=== PATIENT | female | born 1990 | race Caucasian/White ===

== ENCOUNTER → 2018-07-12 13:00 | Outpatient (CLI) | payer OTHER, MEDICAID, SELFPAY ==
--- NOTE | 2018-07-12 13:02 | DI.US.S_ITS ---
PROCEDURE: US OB <= 14 WEEKS FETUS INDICATIONS: viabliity and dates OUTSIDE/PRIOR DATING DATA: Last menstrual period (LMP): Not available. LMP-based estimated date of delivery (HENRI): Not available. First dating scan (date and location): 07/12/18. Estimated date of delivery (HENRI) from first dating scan: 02/09/19. TECHNIQUE: Real-time scanning was performed of the fetus and maternal pelvic organs, with image documentation. Endovaginal scanning was also performed to better visualize the fetus and maternal ovaries. COMPARISON: None. FINDINGS: Embryo: Single living intrauterine gestation with heart rate 185 beats per minute, with a crown-rump length of 2.9 cm and with an estimated gestational age currently of 9 weeks 5 days, plus or -5 days. Measurement variability in dating: +/- 4 weeks by LMP, +/- 7 days by mean sac diameter (use before 6 weeks gestation if crown-rump length not able to be measured), +/- 5 days by crown-rump length (up to 8 weeks 6 days gestation), +/- 7 days by crown-rump length (up to 13 weeks 6 days gestation). Maternal organs: Ovaries normal considering gestational status. Limited images through the kidneys demonstrate no hydronephrosis. IMPRESSION: Living intrauterine gestation, no adnexal pathology found. The delivery date is projected to be centered on 02/09/19, plus or -5 days. Followup anatomic survey at 21 weeks gestation is recommended. Dictated by: Jaciel Simmons M.D. on 07/12/2018 at 16:11 Approved by: Jaciel Simmons M.D. on 07/12/2018 at 16:12
== END ==
PROVIDERS: Family Provider Family Medicine; PCP Family Medicine; Visit Provider Obstetrics & Gynecology
DX: Z34.81 Encounter for supervision of other normal pregnancy, first trimester (principal); Z3A.09 9 weeks gestation of pregnancy
CPT/HCPCS: 76801

== ENCOUNTER → 2020-11-23 11:19 | Outpatient (CLI) | payer OTHER, MEDICAID, SELFPAY ==
[2020-11-23 12:00] LABS: Add Manual Diff / Slide Review NO; Basophils Absolute Auto 100 /uL (0-100); Basophils Percent Auto 0.7 % (0-2); Eosinophils Absolute Auto 0 /uL (0-450); Eosinophils Percent Auto 0.4 % (2-4); Hematocrit 38.7 % (36-46); Hemoglobin 13.1 g/dL (12.0-16.0); Lymphocytes Absolute Auto 1900 /uL (1100-4500); Lymphocytes Percent Auto 27.5 % (25-40); Mean Corpuscular HGB Conc 33.8 % (30-36); Monocytes Absolute Auto 400 /uL (0-900); Monocytes Percent Auto 5.1 % (3-14); Neutrophils Absolute Auto 4700 /uL (1500-7000); Neutrophils Percent Auto 66.3 % (50-75); Platelet Count 311 X10^3/uL (150-400); Red Blood Cell Count 4.21 X10^6/uL (4.0-5.2); White Blood Cell Count 7.1 X10^3/uL (4.5-11.0)
[2020-11-23 12:28] LABS: Alanine Aminotransferase 14 IU/L (<35); Albumin 4.2 g/dL (3.5-5.0); Albumin Globulin Ratio 1.6 (1.0-2.8); Alkaline Phosphatase 71 U/L (38-126); Aspartate Aminotransferase 21 IU/L (14-36); Bilirubin Total 0.5 mg/dL (0.2-1.3); Blood Urea Nitrogen 13 mg/dL (7-17); Calcium 9.8 mg/dL (8.4-10.2); Carbon Dioxide 26 mmol/L (22-32); Chloride 107 mmol/L (98-107); Estimated Glomerular Filt Rate > 60.0 mL/min (>60); Globulin 2.7 g/dL (1.7-4.1); Glucose 94 mg/dL (70-100); HEMOLYSIS < 15 (0-50); Potassium 4.5 mmol/L (3.4-5.1); Sodium 140 mmol/L (137-145); Total Protein 6.9 g/dL (6.3-8.2)
[2020-11-23 12:43] LABS: Free T4, Direct Thyroxine 0.78 ng/dL (0.78-2.19)
[2020-11-23 12:57] LABS: Thyroid Stimulating Hormone 0.856 uIU/mL (0.47-4.68)
== END ==
PROVIDERS: Family Provider Family Medicine; PCP Registered Nurse; Referring Provider Registered Nurse; Visit Provider Registered Nurse
DX: Z86.39 Personal history of other endocrine, nutritional and metabolic disease (principal); D64.9 Anemia, unspecified; G43.909 Migraine, unspecified, not intractable, without status migrainosus
CPT/HCPCS: 36415; 80053; 84439; 84443; 85025

== ENCOUNTER → 2021-01-28 16:01 | Outpatient (CLI) | payer OTHER, MEDICAID, SELFPAY ==
--- NOTE | 2021-01-28 16:03 | DI.US.S_ITS ---
PROCEDURE: US PELVIC COMPLETE INDICATIONS: PELVIC PAIN AND ABNORMAL BLEEDING TECHNIQUE: Real-time scanning was performed of the pelvic organs, with image documentation. Additional endovaginal scanning was necessary due to incomplete visualization of the adnexal and endometrial structures by transabdominal scanning. COMPARISON: [facility], [place], PELVIC COMPLETE, 05/10/2011, 14:44. FINDINGS: Uterus: Uterus is normal in size at 10.4 x 3.9 x 4.6 cm. The endometrium measures 6.0 mm in combined thickness. Ovaries: Ovaries are normal bilaterally measuring 2.6 x 2.3 x 2.1 cm on the right and 3.2 x 2.1 x 1.7 cm on the left. Simple right ovarian cyst measuring 17 mm. Other: No pathologic free abdominal or pelvic fluid. IMPRESSION: Dominant right follicular cyst. Dictated by: Sami CASAS Interpreted: Flaca Saul MD on 01/28/2021 at 16:57 Transcribed by: RHEA on 01/28/2021 at 16:58 Approved by: Flaca Saul M.D. on 01/28/2021 at 18:59
== END ==
PROVIDERS: Family Provider Family Medicine; PCP Registered Nurse; Referring Provider Registered Nurse; Visit Provider Registered Nurse
DX: N93.9 Abnormal uterine and vaginal bleeding, unspecified (principal); R10.2 Pelvic and perineal pain; N83.01 Follicular cyst of right ovary
CPT/HCPCS: 76830; 76856

== ENCOUNTER → 2024-07-02 09:17 | Outpatient (CLI) | payer OTHER, SELFPAY ==
[2024-07-02 11:09] LABS: HCG Quantitative /Beta subunit 614.85 mIU/mL
== END ==
LOC: LAB 09:18
PROVIDERS: Family Provider Family Medicine; Referring Provider Family Medicine; Visit Provider Family Medicine
DX: Z32.00 Encounter for pregnancy test, result unknown (principal)
CPT/HCPCS: 36415; 84702